=== PATIENT | female | born 1950 | race Caucasian/White ===

== ENCOUNTER → 2018-07-19 | Outpatient (CLI) | payer OTHER ==
[~2018-07-19] MED LIST: ALEVE220 M1 PO; AMBIEN 5 MG TABL5 M1 PO; AUGMENTIN 875875 MG PO; FLONASE16 GM NASAL; HYDROCODON-ACE1 EAC7 PO; VITAMIN D3400 UNIT PO; XANAX 0.25 MG0.25 MG PO; ZOFRAN ODT4 MG PO
== END ==
LOC: MRI 08:55
DX: M51.36 Other intervertebral disc degeneration, lumbar region (principal); M51.26 Other intervertebral disc displacement, lumbar region; M43.16 Spondylolisthesis, lumbar region; M12.88 Other specific arthropathies, not elsewhere classified, other specified site

== ENCOUNTER → 2020-06-10 | Outpatient (CLI) | payer OTHER | LOC: RAD 14:31 | PROVIDERS: ATTEND Physical Medicine & Rehabilitation | DX: M47.812 Spondylosis without myelopathy or radiculopathy, cervical region (principal); M40.292 Other kyphosis, cervical region ==